=== PATIENT | female | born 2000 | race Native Hawaiian/Other Pacific Islander ===

== ENCOUNTER 2021-09-06 14:46 | Emergency (ER) | payer OTHER ==
--- NOTE | 2021-09-06 14:50 | ERPHSYRPT ---
- History of Present Illness Time Seen by Provider: 09/06/21 14:50 Source: patient Exam Limitations: no limitations Physician History: This is a 21-year-old white female who approximately 1 month ago fractured her most posterior lower molar. Last several days the pain is getting worse. Patient does not have a dentist appointment and cannot be seen for a month. Severity: mild ENT Location: dental Prearrival Treatment: over the counter meds Modifying Factors: Improves With: activity Associated Symptoms: tooth pain Allergies/Adverse Reactions: No Known Drug Allergies Allergy (Verified 09/06/21 15:05) Travel Risk - International Travel Have you traveled outside of the country in past 3 weeks: No - Coronavirus Screening Are you exhibiting any of the following symptoms?: No Close contact with a COVID-19 positive Pt in past 14-21 Days: No - Review of Systems Constitutional: No Symptoms Eyes: No Symptoms Ears, Nose, & Throat: Other (Dental pain left lower molar) Respiratory: No Symptoms Cardiac: No Symptoms Abdominal/Gastrointestinal: No Symptoms Genitourinary Symptoms: No Symptoms Musculoskeletal: No Symptoms Skin: No Symptoms Neurological: No Symptoms Psychological: No Symptoms Endocrine: No Symptoms Hematologic/Lymphatic: No Symptoms Immunological/Allergic: No Symptoms All Other Systems: Reviewed and Negative - Past Medical History Pertinent Past Medical History: No - Past Surgical History Past Surgical History: No - Nursing Vital Signs Nursing Vital Signs: Initial Vital Signs Temperature 97.6 F 09/06/21 14:52 Pulse Rate 74 09/06/21 14:52 Blood Pressure 132/86 09/06/21 14:52 O2 Sat by Pulse Oximetry 98 09/06/21 14:52 Pain Scale Pain Intensity 6 - Physical Exam General Appearance: no apparent distress, alert, anxiety Eye Exam: bilateral eye: normal inspection, PERRL, EOMI Ear Exam: bilateral ear: auricle normal Nasal Exam: normal inspection Throat Exam: dental tenderness (Fractured left lower molar) Neck Exam: normal inspection, non-tender, supple, full range of motion, trachea midline Cardiovascular/Respiratory Exam: chest non-tender, no respiratory distress Abdominal Exam: non-tender Neurologic Exam: alert, oriented x 3, cooperative, clinical research specialist II-XII nml as tested, normal mood/affect, nml cerebellar function, nml station & gait, sensation nml Skin Exam: normal color, warm, dry SpO2 Interpretation: normal O2 Delivery: Room Air - Course Nursing assessment & vital signs reviewed: Yes - Progress Progress: unchanged Counseled pt/family regarding: diagnosis, need for follow-up - Departure Departure Disposition: Home Clinical Impression: Pain, dental, Fractured tooth Condition: Stable Critical Care Time: No Additional Instructions: Add ibuprofen 600 mg orally with food 3 times a day for pain relief. Follow-up with a dentist for definitive care. Take your antibiotics as prescribed. Prescriptions: Hydrocodone/APAP 5/325 [[place] 5/325 mg] 1 each PO Q8H PRN PRN #6 tablet MDD 3 PRN Reason: Pain Amoxicillin 500 mg Cap [Amoxil 500 mg] 500 mg PO TID #30 cap
[2021-09-06 15:05] VITALS: BP 132/86; PULSE 74; O2SAT 98
[2021-09-06] MEDS ORDERED: MOTRIN 600 MG PO ONE (15:50)
[2021-09-06] MEDS ORDERED: AMOXIL 500 MG PO ONE (15:50)
[2021-09-06] MEDS ORDERED: NORCO 5/325 MG PO ONE (15:50)
[2021-09-06] MEDS ORDERED: MOTRIN 600 MG ONE (15:53)
[2021-09-06] MEDS ORDERED: NORCO 5/325 MG ONE (15:53)
[2021-09-06] MEDS ORDERED: AMOXIL 500 MG ONE (15:53)
== END 2021-09-06 16:05 | disposition home or self-care (01) ==
LOC: ED 14:46
DX: K03.81 Cracked tooth (principal); K08.89 Other specified disorders of teeth and supporting structures; Z79.891 Long term (current) use of opiate analgesic
CPT/HCPCS: 99283; A9270-GY